=== PATIENT | female | born 1995 | race American Indian/Alaskan Native ===

== ENCOUNTER 2019-03-24 14:02 | Emergency (ER) | payer MEDICAID, OTHER ==
[2019-03-24 14:08] VITALS: BP 147/100
--- NOTE | 2019-03-24 14:25 | EDM.PDOC ---
ED HPI GENERAL MEDICAL PROBLEM - General Chief Complaint: General Stated Complaint: TOOTH PAIN Time Seen by Provider: 03/24/19 14:25 Source of Information: Reports: Patient History Limitations: Reports: No Limitations - History of Present Illness INITIAL COMMENTS - FREE TEXT/NARRATIVE: This 23 yo female patient reports to the ED with left upper posterior tooth pain. The patient reports she has had pain in the area for the past year, but her pain has gotten much worse over the past 24 hours. The patient reports she took Tylenol this morning at about 0500 and took ibuprofen at about 0800 this morning with no symptom relief. The patient reports attempting to see her dentist (Angelica Pettit) this morning, but there were no appointments available. 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 Tooth/Teeth Pain Score (Numeric/FACES): 10 - Related Data Allergies Allergy/AdvReac Type Severity Reaction Status Date / Time No Known Allergies Allergy Verified 03/24/19 14:09 Home Meds: Home Meds Vit37/Iron/Folic Acid [Prenata] 1 tab PO DAILY 03/24/19 [History] Past Medical History HEENT History: Reports: Impaired Vision Other HEENT History: wears glasses Cardiovascular History: Reports: None Respiratory History: Reports: None Gastrointestinal History: Reports: None Genitourinary History: Reports: None 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 Musculoskeletal History: Reports: Fracture Other Musculoskeletal History: LEFT ARM FRACTURE Neurological History: Reports: None Psychiatric History: Reports: Depression Endocrine/Metabolic History: Reports: None Hematologic History: Reports: None Immunologic History: Reports: None Oncologic (Cancer) History: Reports: None Dermatologic History: Reports: None - Infectious Disease History Infectious Disease History: Reports: Chicken Pox - Past Surgical History Head Surgeries/Procedures: Reports: None HEENT Surgical History: Reports: Adenoidectomy, Oral Surgery, Tonsillectomy Cardiovascular Surgical History: Reports: None GI Surgical History: Reports: None Female Surgical History: Reports: None Endocrine Surgical History: Reports: None Musculoskeletal Surgical History: Reports: None Dermatological Surgical History: Reports: None Social & Family History - Family History Family Medical History: Noncontributory - Tobacco Use Smoking Status *Q: Never Smoker Second Hand Smoke Exposure: No - Caffeine Use Caffeine Use: Reports: Soda - Recreational Drug Use Recreational Drug Use: No ED ROS GENERAL - Review of Systems Review Of Systems: ROS reveals no pertinent complaints other than HPI. ED EXAM, GENERAL - Physical Exam Exam: See Below Exam Limited By: No Limitations General Appearance: Alert, WD/WN, Moderate Distress Eye Exam: Bilateral Eye: EOMI, Normal Inspection, PERRL Ears: Normal External Exam, Normal Canal, Hearing Grossly Normal, Normal TMs Nose: Normal Inspection, Normal Mucosa, No Blood Throat/Mouth: Other (the patient has dental decay to the left upper posterior teeth with some erythema near the gum line. The patient has pain throughout her upper jaw that has been getting worse. ) Head: Atraumatic, Normocephalic Neck: Normal Inspection, Supple, Non-Tender, Full Range of Motion Respiratory/Chest: No Respiratory Distress, Lungs Clear, Normal Breath Sounds, No Accessory Muscle Use, Chest Non-Tender Cardiovascular: Normal Peripheral Pulses, Regular Rate, Rhythm, No Edema, No Gallop, No JVD, No Murmur, No Rub GI/Abdominal: Normal Bowel Sounds, Soft, Non-Tender, No Organomegaly, No Distention, No Abnormal Bruit, No Mass (Female) Exam: Deferred Rectal (Female) Exam: Deferred Back Exam: Normal Inspection, Full Range of Motion, NT Extremities: Normal Inspection, Normal Range of Motion, Non-Tender, Normal Capillary Refill, No Pedal Edema Neurological: Alert, Oriented, CN II-XII Intact, Normal Cognition, Normal Gait, Normal Reflexes, No Motor/Sensory Deficits Psychiatric: Normal Affect, Normal Mood Skin Exam: Warm, Dry, Intact, Normal Color, No Rash Lymphatic: No Adenopathy Course - Vital Signs Last Recorded V/S: Last Vital Signs Temp 36.9 C 03/24/19 14:06 Pulse 70 03/24/19 14:06 Resp 16 03/24/19 14:06 BP 147/100 H 03/24/19 14:06 Pulse Ox 100 03/24/19 14:06 - Re-Assessments/Exams Free Text/Narrative Re-Assessment/Exam: 03/24/19 14:18 The patient was talking on her cell phone and made no effort to end her call. The patient was advised that I will return in a bit. Departure - Departure Time of Disposition: 14:35 Disposition: Home, Self-Care 01 Condition: Fair Clinical Impression: Pain due to dental caries - Discharge Information *PRESCRIPTION DRUG MONITORING PROGRAM REVIEWED*: Not Applicable *COPY OF PRESCRIPTION DRUG MONITORING REPORT IN PATIENT RADHA: Not Applicable Instructions: Dental Abscess, [id number] Care Plan Goals: The patient was advised of the examination results during the visit. The patient was give Lidocaine Solution 2% applied to the area of concern while in the ED. The patient was discharged with a script for Clindamycin (300 mg) to take 1 by mouth 4 times per day for 10 days and Viscous Lidocaine 2% #100 mL to apply 5 mL to a cotton ball applied to the area of concern every 4 hours as needed for symptom relief. The patient will need to visit her dentist to have further assessment and treatment.
[2019-03-24] MEDS ORDERED: Lidocaine 2% Viscous Solution 15 ML Cup PO ONE (14:30)
== END 2019-03-24 14:44 | disposition home or self-care (01) ==
LOC: DL.ED 14:02
DX: K02.9 Dental caries, unspecified (principal)
CPT/HCPCS: 99282; A9270-GY

== ENCOUNTER 2021-01-12 21:49 | Emergency (ER) | payer MEDICAID, OTHER ==
[2021-01-12 22:13] VITALS: BP 148/84; PULSE 84
[2021-01-12 22:57] LABS: CORONAVIRUS COVID-19 NAA NEGATIVE (NEGATIVE)
--- NOTE | 2021-01-13 01:12 | EDM.PDOC ---
ED HPI GENERAL MEDICAL PROBLEM - General Chief Complaint: ENT Problem Stated Complaint: EARS HURT, THROAT HURT TO SWALLOW Time Seen by Provider: 01/13/21 00:10 Source of Information: Reports: Patient, RN, RN Notes Reviewed History Limitations: Reports: No Limitations - History of Present Illness INITIAL COMMENTS - FREE TEXT/NARRATIVE: Patient presents to the ED via personal vehicle for complaints of sore throat, ear pressure, and rhinorrhea. The patient reports she first developed URI-like symptoms about two weeks ago, which included the aforementioned symptoms and a cough. She notes her cough has stopped for about two days but the sore throat and bilateral ear pressure persist. The patient feels the pain in her throat makes it difficult to swallow, at times. She denies fever, shaking chills, throat tightness, swelling to her tongue, changes to her voice, decreased neck mobility, difficulty breathing, chest pain, palpitations, or shortness of breath. She is s/p tonsillectomy and adenoidectomy from childhood. She has not taken any medications for this pain and has noted no relieving factors. The patient denies tobacco, alcohol, or recreational drug use. 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 Musculoskeletal History: Reports: Fracture Other Musculoskeletal History: LEFT ARM FRACTURE Neurological History: Reports: None Psychiatric History: Reports: Depression Endocrine/Metabolic History: Reports: None Hematologic History: Reports: None Immunologic History: Reports: None Oncologic (Cancer) History: Reports: None Dermatologic History: Reports: None - Infectious Disease History Infectious Disease History: Reports: Chicken Pox, Novel Coronavirus - Past Surgical History Head Surgeries/Procedures: Reports: None HEENT Surgical History: Reports: Adenoidectomy, Oral Surgery, Tonsillectomy Cardiovascular Surgical History: Reports: None GI Surgical History: Reports: None Female Surgical History: Reports: None Endocrine Surgical History: Reports: None Musculoskeletal Surgical History: Reports: None Dermatological Surgical History: Reports: None Social & Family History - Family History Family Medical History: No Pertinent Family History - Tobacco Use Tobacco Use Status *Q: Never Tobacco User - Caffeine Use Caffeine Use: Reports: Coffee, Soda - Recreational Drug Use Recreational Drug Use: No ED ROS ENT - Review of Systems Review Of Systems: Comprehensive ROS is negative, except as noted in HPI. 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, per patient) Nose: Normal Inspection, Normal Mucousa, No Blood Mouth/Throat: Normal Inspection, Normal Gums, Normal Lips, Normal Oropharynx, Normal Teeth, Throat Pain (To palpation of left deep posterior tongue; no mass, erythema, or edema appreciated), Other (No edema or erythema appreciated throughout the oral cavity; No tonsils appreciated, bilaterally; No uvular deviation or edema noted; No masses, ulcers, or exudates noted) Head: Atraumatic, Normocephalic Neck: Normal Inspection, Supple, Non-Tender (To palpation), Full Range of Motion, Other (No lymphadenopathy) Respiratory/Chest: No Respiratory Distress, Lungs Clear, Normal Breath Sounds, No Accessory Muscle Use, Chest Non-Tender Cardiovascular: Normal Peripheral Pulses, Regular Rate, Rhythm, No Edema, No Gallop, No JVD, No Murmur, No Rub GI/Abdominal: Normal Bowel Sounds, Non-Tender, No Distention, No Mass, Pelvis Stable Extremities: Normal Inspection, Normal Range of Motion, Non-Tender, No Pedal Edema, Normal Capillary Refill Neurological: Alert, Oriented, CN II-XII Intact, Normal Cognition, Normal Gait, Normal Reflexes, No Motor/Sensory Deficits Psychiatric: Normal Affect, Normal Mood Skin: Warm, Dry, Intact, Normal Color, No Rash Lymphatic: No Adenopathy Course - Vital Signs Last Recorded V/S: Last Vital Signs Temp 98.3 F 01/12/21 22:07 Pulse 84 01/12/21 22:07 Resp 16 01/12/21 22:07 BP 148/84 H 01/12/21 22:07 Pulse Ox 100 01/12/21 22:07 - Orders/Labs/Meds Labs: Laboratory Tests 01/12/21 Range/Units 22:06 Influenza Type A RNA Negative (NEGATIVE) Influenza Type B RNA Negative (NEGATIVE) SARS-CoV-2 RNA (YADIRA) Negative (NEGATIVE) Meds: Medications Discontinued Medications Generic Name Dose Route Start Last Admin Trade Name Jose Ramonq PRN Reason Stop Dose Admin Methylprednisolone 8 mg 01/13/21 01:15 01/13/21 01:34 Methylprednisolone 4 Mg Tab 21 Tab/Dosepak PO 01/13/21 01:16 2 tab ONETIME ONE Administration Protocol - Re-Assessments/Exams Free Text/Narrative Re-Assessment/Exam: 01/12/21 Rapid Strep A negative; given lack of fever, rash, and tonsils will not treat while culture pending. COVID and Influenza negative. No palpable masses throughout oropharynx and neck. Patient has good neck mobili ty and states difficulty swallowing pertains to pain as opposed to tongue swelling or throat tightness. Assessment fairly benign, however will treat empirically with Medrol dose pack. Red flag signs and symptoms which would warrant reevaluation reviewed; patient encouraged to follow up with primary care provider should symptoms persist. Patient verbalized understanding and agreement with the plan of care. Departure - Departure Time of Disposition: 01:09 Disposition: Home, Self-Care 01 Condition: Good Clinical Impression: Sore throat due to virus Swallowing difficulty Qualifiers: Dysphagia type: oropharyngeal phase Qualified Code(s): R13.12 - Dysphagia, oropharyngeal phase - Discharge Information *PRESCRIPTION DRUG MONITORING PROGRAM REVIEWED*: Not Applicable *COPY OF PRESCRIPTION DRUG MONITORING REPORT IN PATIENT RADHA: Not Applicable Forms: ED Department Discharge Additional Instructions: Rx: Medrol Dose Pack 1.) Take all of your steroids, as directed on packaging; start with the second dose as you received your first dose in the emergency department. 2.) Drink plenty of water to keep you hydrated and your salivary glands working well; avoid overly salty or sour foods. 3.) Follow up with your primary care provider in 3-5 days regarding today's visit; consider ENT consult should symptoms return. Sepsis Event Note (ED) - Evaluation Sepsis Screening Result: No Definite Risk
[2021-01-13] MEDS ORDERED: methylPREDNISolone 4 MG Tab 21 Tab/Dosepak PO ONE (01:15)
== END 2021-01-13 01:38 | disposition home or self-care (01) ==
LOC: DL.ED 21:49
DX: J02.8 Acute pharyngitis due to other specified organisms (principal); Z79.899 Other long term (current) drug therapy; Z20.822 Contact with and (suspected) exposure to COVID-19
CPT/HCPCS: 0240U; 87081; 87430; 99283; A9270-GY